=== PATIENT | male | born 1975 | race American Indian/Alaskan Native ===

== ENCOUNTER 2019-05-01 21:58 | Emergency (ER) | payer BC ==
[2019-05-01] MEDS ORDERED: ASPIRIN PO ONE (23:00)
--- NOTE | 2019-05-02 00:14 | XRay Report ---
CHEST 1 VIEW INDICATION: Chest Pain. COMPARISON: 03/24/2013. FINDINGS: Support devices: None. Heart: Within normal limits. Lungs/Pleura: No acute air space or interstitial disease. Additional findings: None. IMPRESSION: No acute abnormality. Signer Name: Dany Dunn MD Signed: 05/02/2019 12:09 AM Workstation Name: [id number]
[2019-05-02 01:16] LABS: Basophils % (Auto) 0.6 % (0.0-1.8); Eosinophils # (Auto) 0.2 K/mm3 (0.0-0.4); Eosinophils % (Auto) 2.4 % (0.0-4.3); Hematocrit 43.3 % (35.5-45.6); Hemoglobin 14.9 gm/dl (11.8-15.2); Lymphocytes # (Auto) 1.8 K/mm3 (1.2-5.4); Lymphocytes % (Auto) 27.4 % (13.4-35.0); Mean Corpuscular HGB Conc 35 % (32-34); Mean Corpuscular Volume 83 fl (84-94); Monocytes # (Auto) 0.5 K/mm3 (0.0-0.8); Monocytes % (Auto) 8.2 % (0.0-7.3); Platelet Count 192 K/mm3 (140-440); Red Blood Count 5.23 M/mm3 (3.65-5.03); Red Cell Distribution Width 13.5 % (13.2-15.2)
[2019-05-02 01:26] LABS: BUN/Creatinine Ratio 8; Blood Urea Nitrogen 11 mg/dL (9-20); Calcium 9.6 mg/dL (8.4-10.2); Hemolysis Index 13
[2019-05-02] MEDS ORDERED: CATAPRES PO ONE (01:44)
[2019-05-02] MEDS ORDERED: ULTRAM PO ONE (01:44)
[2019-05-02 01:50] VITALS: BP 175/100
[2019-05-02] MEDS ORDERED: ASPIRIN ONE (01:52)
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
== END 2019-05-02 03:54 | disposition home or self-care (01) ==
LOC: ED 21:58
DX: I16.0 Hypertensive urgency (principal); I10 Essential (primary) hypertension
CPT/HCPCS: 36415; 71045; 80048; 84484; 85025; 85379; 93005; 93010